=== PATIENT | male | born 1970 | race Caucasian/White ===

== ENCOUNTER → 2021-06-04 15:34 | Outpatient (BNVA) | payer OTHER, SELFPAY | PROVIDERS: PCP Internal Medicine; Visit Provider Surgery ==

== ENCOUNTER 2021-07-02 07:46 | Outpatient (REF) | payer OTHER, SELFPAY ==
[2021-07-02 07:48] VITALS: BP 126/74; PULSE 72; RESP 19; TEMP 36.7; O2SAT 97; BMI 28.5
--- NOTE | 2021-07-02 08:20 | W.PM.OPN ---
Operative Note Operative Note Date of Service: 07/02/21 Narrative: Preop diagnosis: Skin lesion, left cheek Postop diagnosis: Skin lesion left cheek Procedure: Excision of a skin lesion, left cheek under local anesthesia Surgeon: Khang Vides MD The patient is a 50-year-old male referred to me because of a skin lesion of the left cheek, measuring about 4 mm in widest diameter. It was elevated and appeared to be papillomatous He understood the technique of excision under local anesthesia. He was aware of the risks, benefits, and alternatives Was brought to the minor procedure room. He was placed supine. The area of the lesion was prepped and draped lidocaine 1% was used for local anesthesia. An elliptical incision was made in the skin around this lesion using blade 15. This was carried down through the full-thickness of skin and subcutaneous fat to excise the entire lesion. This was sent as specimen. I closed the incision with full-thickness nylon 5 0 interrupted sutures. Dressings were applied He tolerated procedure well. There were no complication noted. Blood loss about 1 cc. He was given wound care instructions.
== END 2021-07-02 07:47 | disposition home or self-care (01) ==
LOC: HO.MS 07:46
PROVIDERS: Visit Provider Surgery
PROC: (CPT 11440; principal; 2021-07-02 08:00)
DX: L98.8 Other specified disorders of the skin and subcutaneous tissue (principal); L85.9 Epidermal thickening, unspecified
CPT/HCPCS: 11440; 88305

== ENCOUNTER → 2021-07-10 09:31 | Outpatient (BNVA) | payer OTHER, SELFPAY | PROVIDERS: Visit Provider Surgery ==

== ENCOUNTER 2023-04-25 08:37 | Emergency (ER) | payer OTHER, SELFPAY ==
[2023-04-25 08:55] VITALS: BP 112/81; PULSE 67; RESP 18; TEMP 36.6; O2SAT 96; BMI 27.1
[2023-04-25 09:56] VITALS: BP 116/84; PULSE 67; RESP 17; O2SAT 97
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
[2023-04-25 11:45] VITALS: BP 123/77; PULSE 55; RESP 17; O2SAT 97
== END 2023-04-25 12:13 | disposition home or self-care (01) ==
PROVIDERS: Emergency Provider Emergency Medicine; PCP Family Medicine
DX: M54.50 Low back pain, unspecified (principal); M53.3 Sacrococcygeal disorders, not elsewhere classified; F17.210 Nicotine dependence, cigarettes, uncomplicated; Z71.6 Tobacco abuse counseling; Z79.899 Other long term (current) drug therapy
CPT/HCPCS: 72100; 72220; 96372; 99284; J1885

== ENCOUNTER 2023-04-28 10:17 | Outpatient (AMB) | payer OTHER, SELFPAY ==
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
[2023-04-28 10:27] VITALS: BP 124/70; PULSE 75; RESP 13; TEMP 36.4; O2SAT 99; BMI 29.6
== END 2023-04-28 10:58 | disposition home or self-care (01) ==
PROVIDERS: PCP Family Medicine; Visit Provider Nurse Practitioner Family
DX: M54.9 Dorsalgia, unspecified (principal)
CPT/HCPCS: 99213

== ENCOUNTER 2023-07-23 13:22 | Outpatient (AMB) | payer OTHER, SELFPAY ==
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
[2023-07-23 13:25] VITALS: BP 116/62; PULSE 78; RESP 16; O2SAT 95; BMI 29.6
== END 2023-07-23 14:03 | disposition home or self-care (01) ==
PROVIDERS: PCP Family Medicine; Visit Provider Family Medicine
DX: M54.9 Dorsalgia, unspecified (principal); B07.9 Viral wart, unspecified
CPT/HCPCS: 99213

== ENCOUNTER 2024-01-21 13:10 | Outpatient (AMB) | payer OTHER, SELFPAY ==
[2024-01-21 13:19] VITALS: BP 124/78; PULSE 72; O2SAT 96; BMI 31.2
--- NOTE | 2024-01-21 13:19 | A.OFFPC_ITS ---
Vital Signs 01/21/24 13:19 Height 6 ft Weight 230 lb BMI 31.2 BP 124/78 Blood Pressure Location Lt brachial Position Sitting Pulse 72 Pulse Source Pulse Oximeter Pulse Oximetry (%) 96 Oxygen Delivery Method Room Air Intake Visit Reasons: Anxiety/depression Intake Note: Patient is here to follow up on anxiety and depression, is having bilateral knee pain, and left lower back pain. Allergies No Known Allergies [No Known Allergies*] Allergy (Verified 01/21/24 13:22) Medication List - Last Reconciled 01/21/24 by Pj Murray MD citalopram 10 mg (1/2 x 20 mg) PO DAILY 30 days cyclobenzaprine 10 mg PO TID PRN hydroxyzine HCl 50 mg PO DAILY PRN 30 days ibuprofen 800 mg PO Q8H PRN Tobacco use date assessed: 01/21/24 Dental Screening Dental Screen Date: 01/21/24 Did you have a dental visit in the last 12 months?: Yes Did you have a dental problem in the last 6 months where you did not have access to dental care?: No Was dental information given to patient?: Patient has dentist HPI Anxiety/depression HPI Details Patient?presents?to?follow-up?anxiety Also?has?complaints?of?recent?back?strain?and?knee?pain Patient?says?his?anxiety?is?well?controlled?except?on?Sundays?and?Mondays?when?h e?has?to?go?back?to?work. Recently?picked?something?up?while?bending?forward?and?strained?his?back. Ibuprofen?and?cyclobenzaprine?have?worked?in?the?past. Denies?weakness?in?legs.??Denies?any?bowel?or?bladder?dysfunction. Bilateral?knee?pain?and?he?was?told?10?years?ago?that?he?already?needed?knee?rep lacements. 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 1. Little interest or pleasure in doing things: not at all 2. Feeling down, depressed, or hopeless: not at all 3. Trouble falling or staying asleep, or sleeping too much: not at all 4. Feeling tired or having little energy: several days 5. Poor appetite or overeating: not at all 6. Feeling bad about yourself - or that you are a failure or have let yourself or your family down: not at all 7. Trouble concentrating on things, such as reading the newspaper or watching television: not at all 8. Moving or speaking so slowly that other people could have noticed. Or the opposite - being so fidgety or restless that you have been moving around a lot more than usual: not at all 9. Thoughts that you would be better off or of hurting yourself in some way: not at all Total score: 1 Depression Screening Interpretation: Negative Depression Screening Done: Yes 53768 - PHQ-9 Billing: Yes Source: Developed by Drs. Reese Contreras, Fabiana Stanley, Tom Jansen and colleagues, with an educational marivel from [employer]. Thrive Questionnaire Date Thrive assessed: 04/28/23 MAGAN-7 AMB Questionnaire MAGAN-7 Date MAGAN - 7 assessed: 01/21/24 Feeling nervous, anxious, or on edge: 0 = Not at all Not being able to stop or control worryin = Not at all Worrying too much about different things: 1 = Several days Trouble relaxin = Not at all Being so restless that it is hard to sit still: 0 = Not at all Becoming easily annoyed or irritable: 1 = Several days Feeling afraid as if something awful might happen: 0 = Not at all Total MAGAN-7 score (0-4 normal; 5-9 mild; 10-14 moderate; 15-21 severe): 2 Source: Developed by Drs. Reese Contreras, Fabiana Stanley, Tom Jansen and colleagues, with an educational marivel from [employer]. MAGAN-7 Assessment Billing MAGAN-7 Assessment Tool: MAGAN-7 Assessment 53317 Review of Systems Const Denies chills, Denies fatigue, Denies fever(s), Denies headache(s) and Denies weakness ENT Denies dizziness and Denies headache(s) Card Denies chest pain, Denies lightheadedness, Denies dyspnea and Denies other (Palpitations) Resp Denies cough, Denies dyspnea, Denies wheezing and Denies other ( shortness of breath) Musc Details: Back?pain?and?knee?pain-see?HPI Denies numbness and Denies tingling Neuro Denies dizziness, Denies headache(s), Denies numbness, Denies tingling, Denies paresthesias and Denies weakness Psych Details: See?HPI Reports anxiety and Denies depression Endo Denies fatigue Aller/Immun Denies wheezing Physical exam (Primary Care) Vital Signs: Last Vital Signs Pulse 72 01/21/24 13:19 BP 124/78 01/21/24 13:19 Pulse Ox 96 01/21/24 13:19 Oxygen Delivery Method Room Air 01/21/24 13:19 BMI result Body Mass Index 31.2 Tobacco/Smoking Status: Tobacco use Status Tobacco use date assessed 01/21/24 01/21/24 13:27 Patient Tobacco Use Status Former Tobacco user 01/21/24 13:27 e-Cigarette/Vaping Use Never Used 01/21/24 13:27 PHQ-9: PHQ-9 Score PHQ-9: Total score 1 01/21/24 13:27 Depression Screening Interpretation: Negative Thrive Assessment: Date of Thrive Assessment Date Thrive assessed 04/28/23 01/21/24 13:27 Const General: no acute distress and well developed Nutritional Appearance: well nourished Orientation/consciousness: patient oriented x3 HENMT Head: Yes normocephalic and Yes atraumatic Eyes General: appearance normal, both eyes and all related structures Pupils: Equal, round and reactive pupils present EOM: EOMs intact bilaterally Resp Effort & Inspection: normal respiratory effort Auscultation: clear to auscultation bilaterally Cardio Rate: regular rate Rhythm: regular rhythm Heart sounds: S1 normal heart sound present, S2 normal heart sound present, no gallops, no murmurs and no rubs Back/Spine/Pelvis Other: Pain?with?low?back?ROM Straight?leg?raise?negative Neuro General: patient oriented x3 and gait normal Cranial nerves: Yes Equal, round and reactive pupils present Extrem Other: Bilateral?knee?pain?with?mild?joint?space?tenderness Psych Affect: normal affect Assessment and Plan Assessment & Plan (1) Anxiety: Code(s): F41.9 - Anxiety disorder, unspecified Plan: Controlled?with?citalopram?and?hydroxyzine. He?has?a?therapist He?notes?that?most?of?his?anxiety?is?on?Wednesday?night/Wednesday?morning?as?he?gets?a nxiety?about?going?back?to?work. We?discussed?talking?to?his?therapist?about?this?and?coming?up?with?coping?strat egies. Continue?current?medication (2) Low back strain: Code(s): S39.012A - Strain of muscle, fascia and tendon of lower back, initial encounter Plan: Patient?strained?his?back Encouraged?better?body?mechanics Ibuprofen?and?cyclobenzaprine Physical?therapy (3) Bilateral knee pain: Code(s): M25.561 - Pain in right knee; M25.562 - Pain in left knee Plan: Patient?notes?longstanding?bilateral?knee?pain?and?says?he?has?seen?a?specialist ?in?the?past?who?told?him?he?needed?knee?replacements.?? Start?physical?therapy?and?Check?x-rays Referred?to?Ortho Ibuprofen Orders: Orders PT Evaluation and Treatment Today S39.012A - Strain of muscle, fascia and tendon of lower back, initial encounter XR knee RT 3V Today M25.561 - Pain in right knee, M25.562 - Pain in left knee XR knee LT 3V Today M25.561 - Pain in right knee, M25.562 - Pain in left knee Referrals Orthopedics Referral M25.561 - Pain in right knee, M25.562 - Pain in left knee Medications: Refilled cyclobenzaprine 10 mg PO TID PRN 60 tabs 0RF muscle spasm M25.561 - Pain in right knee, M25.562 - Pain in left knee ibuprofen 800 mg PO Q8H PRN 60 tabs 1RF pain M25.561 - Pain in right knee, M25.562 - Pain in left knee Coding Level of Care Code Est Pt Level 4 (77423) Diagnoses Anxiety F41.9 Low back strain S39.012A Bilateral knee pain M25.561; M25.562 Additional Codes MAGAN-7 Assessment Billing - MAGAN-7 Assessment Tool: MAGAN-7 Assessment 33842 ([id number])
== END 2024-01-21 13:52 | disposition home or self-care (01) ==
PROVIDERS: PCP Nurse Practitioner Family; Visit Provider Family Medicine
DX: S39.012A Strain of muscle, fascia and tendon of lower back, initial encounter (principal); F41.9 Anxiety disorder, unspecified; M25.561 Pain in right knee; M25.562 Pain in left knee
CPT/HCPCS: 99214

== ENCOUNTER 2024-02-18 09:46 | Outpatient (REF) | payer OTHER, SELFPAY ==
--- NOTE | ~2024-02-18 | XR_ITS ---
EXAMINATION: XR knee RT 3V, XR knee LT 3V CLINICAL INFORMATION: Reason for Exam M25.569 - Pain in unspecified knee COMPARISON: None. TECHNIQUE: AP, lateral, and oblique views of the bilateral knees FINDINGS: * No acute fracture or dislocation. * Moderate degenerative changes of the bilateral knees with joint space narrowing and patellofemoral osteophytosis. * No soft tissue abnormality. XR/XR knee RT 3V IMPRESSION: Moderate degenerative changes of the bilateral knees.
--- NOTE | ~2024-02-18 | XR_ITS ---
EXAMINATION: XR knee RT 3V, XR knee LT 3V CLINICAL INFORMATION: Reason for Exam M25.569 - Pain in unspecified knee COMPARISON: None. TECHNIQUE: AP, lateral, and oblique views of the bilateral knees FINDINGS: * No acute fracture or dislocation. * Moderate degenerative changes of the bilateral knees with joint space narrowing and patellofemoral osteophytosis. * No soft tissue abnormality. XR/XR knee LT 3V IMPRESSION: Moderate degenerative changes of the bilateral knees.
== END 2024-02-18 09:47 | disposition home or self-care (01) ==
LOC: HO.HOSX 09:46
PROVIDERS: PCP Nurse Practitioner Family; Visit Provider Orthopaedic Surgery
DX: M23.8X2 Other internal derangements of left knee (principal); M23.8X1 Other internal derangements of right knee
CPT/HCPCS: 73562

== ENCOUNTER 2024-02-18 09:46 | Outpatient (AMB) | payer OTHER, SELFPAY ==
--- NOTE | 2024-02-18 09:49 | A.OFFVIS_ITS ---
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 Patient reports that he has had bilateral knee pain ongoing for many years and was told in the past that he would need both knees replaced. 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 His symptoms are not severe however they are constant. 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 Resp Other: No audible wheezing Effort & Inspection: normal respiratory effort Back/Spine/Pelvis Cervical Spine: normal cervical lordosis Skin General skin exam: no rashes or lesions noted Neuro General: no focal motor deficits Extrem Other: full rom no effusion mild anterior and retropatellar ttp Psych Appearance: grossly normal and well kempt Mental Status: mental status grossly normal Speech and movement: Normal speech and movement present Affect: normal affect Attitude: cooperative Results Reviewed Results Reviewed: PF OA bilaterally Assessment & Plan Assessment & Plan (1) Osteoarthritis of patellofemoral joints of both knees: Code(s): M17.0 - Bilateral primary osteoarthritis of knee Category: Medical Plan: Discssed findings No acute intervention warranted If pain worsens can consider NSAIDs, injections. Orders: Orders XR knee standing BI Today M25.569 - Pain in unspecified knee Coding Level of Care Code New Pt Level 3 (79955) Diagnoses Osteoarthritis of patellofemoral joints of both knees M17.0
== END 2024-02-18 11:19 | disposition home or self-care (01) ==
PROVIDERS: PCP Nurse Practitioner Family; Visit Provider Orthopaedic Surgery
DX: M17.0 Bilateral primary osteoarthritis of knee (principal)
CPT/HCPCS: 99203

== ENCOUNTER 2024-05-05 13:21 | Outpatient (AMB) | payer OTHER, SELFPAY ==
--- NOTE | 2024-05-05 14:12 | A.OFFPC_ITS ---
Vital Signs 05/05/24 14:13 Height 6 ft Weight 215 lb 2 oz BMI 29.2 BP 110/80 Blood Pressure Location Rt brachial Position Sitting Respiration 15 Pulse 82 Pulse Source Pulse Oximeter Temp 97.4 F Temp Source Temporal Artery Scan Pulse Oximetry (%) 95 Oxygen Delivery Method Room Air Intake Visit Reasons: CPE labs Intake Note: Patient states that he has a growth on left eye in the corner that he would like looked at and removed. 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 Required: No Accompanied by: Self / Same As Patient Allergies No Known Allergies [No Known Allergies*] Allergy (Verified 05/05/24 14:18) Medication List - Last Reconciled 05/05/24 by Pj Murray MD citalopram 10 mg (1/2 x 20 mg) PO DAILY 30 days Tobacco use date assessed: 05/05/24 Dental Screening Dental Screen Date: 05/05/24 Did you have a dental visit in the last 12 months?: Yes Did you have a dental problem in the last 6 months where you did not have access to dental care?: No Was dental information given to patient?: Patient has dentist HPI CPE labs HPI Details 53 y/o male presents for a CPE with f/u labs and health maintenance. No recent labs to review. He reports hip pain/tendonitis. 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 1. Little interest or pleasure in doing things: not at all 2. Feeling down, depressed, or hopeless: not at all 3. Trouble falling or staying asleep, or sleeping too much: not at all 4. Feeling tired or having little energy: not at all 5. Poor appetite or overeating: not at all 6. Feeling bad about yourself - or that you are a failure or have let yourself or your family down: not at all 7. Trouble concentrating on things, such as reading the newspaper or watching television: not at all 8. Moving or speaking so slowly that other people could have noticed. Or the opposite - being so fidgety or restless that you have been moving around a lot more than usual: not at all 9. Thoughts that you would be better off or of hurting yourself in some way: not at all Total score: 0 Depression Screening Interpretation: Negative Depression Screening Done: Yes 51233 - PHQ-9 Billing: Yes Source: Developed by Drs. Reese Contreras, Fabiana Stanley, Tom Jansen and colleagues, with an educational marivel from [employer]. Thrive Questionnaire Date Thrive assessed: 05/05/24 I am a: Patient What is your living situation today?: I have a steady place to live Within the past 12 months, did the food you bought not last and you didn't have the money to get more?: Never true Within the past 12 months, did you worry whether your food would run out before you got money to buy more?: Never true Do you have trouble paying for medicines?: No Do you have trouble getting transportation to medical appointments?: No Do you have trouble paying your heating and electricity bill?: No Do you have trouble taking care of your child, family member or friend?: No Do you have trouble with day-to-day activities such as bathing, preparing meals, shopping, managing finances, etc.?: No Are you currently unemployed and looking for a job?: No Are you interested in more education?: No Please select the resources that you would like help with: None Currently or been in a relationship where the following occur: No concerns reported THRIVE Score: 0 AUDIT C Alcohol Use Questionnaire (AUDIT-C) 1. How often do you have a drink containing alcohol?: Never 3. How often do you have six or more drinks on one occasion?: Never Total Score: 0 MAGAN-7 AMB Questionnaire MAGAN-7 Date AMGAN - 7 assessed: 05/05/24 Feeling nervous, anxious, or on edge: 2 = More than half the days Not being able to stop or control worryin = Not at all Worrying too much about different things: 0 = Not at all Trouble relaxin = Not at all Being so restless that it is hard to sit still: 0 = Not at all Becoming easily annoyed or irritable: 2 = More than half the days Feeling afraid as if something awful might happen: 0 = Not at all Total MAGAN-7 score (0-4 normal; 5-9 mild; 10-14 moderate; 15-21 severe): 4 Source: Developed by Drs. Reese Contreras, Fabiana Stanley, Tom Jansen and colleagues, with an educational marivel from [employer]. MAGAN-7 Assessment Billing MAGAN-7 Assessment Tool: MAGAN-7 Assessment 95486 Review of Systems Const Denies chills, Denies fatigue, Denies fever(s), Denies headache(s) and Denies weakness Eyes Denies change in vision ENT Denies dizziness, Denies headache(s), Denies hearing loss, Denies nasal congestion, Denies sinus pain, Denies sinus pressure and Denies sore throat Card Denies chest pain, Denies lightheadedness, Denies dyspnea and Denies other (palpitations) Resp Denies cough, Denies dyspnea and Denies wheezing GI Denies abdominal pain, Denies melena, Denies hematochezia, Denies change in bowel habits, Denies dyspepsia and Denies nausea Denies hematuria and Denies dysuria Musc Details: Hip pain Knee pain Denies abnormal gait, Denies myalgias, Denies arthralgias, Denies numbness and Denies tingling Skin/Breast Denies rash, Denies unusual bruising and Denies wounds Neuro Denies abnormal gait, Denies dizziness, Denies headache(s), Denies memory loss, Denies numbness, Denies Sensory deficit (Neuro), Denies tingling and Denies weakness Psych Denies anxiety, Denies depression and Denies memory loss Endo Denies cold intolerance, Denies fatigue, Denies heat intolerance, Denies polydipsia and Denies polyuria Wesley/Lymph Denies easy bleeding and Denies easy bruising Aller/Immun Denies wheezing Physical exam (Primary Care) Vital Signs: Last Vital Signs Temp 97.4 F 05/05/24 14:13 Pulse 82 05/05/24 14:13 Resp 15 05/05/24 14:13 BP 110/80 05/05/24 14:13 Pulse Ox 95 05/05/24 14:13 Oxygen Delivery Method Room Air 05/05/24 14:13 BMI result Body Mass Index 29.2 Tobacco/Smoking Status: Tobacco use Status Tobacco use date assessed 05/05/24 05/05/24 14:23 Patient Tobacco Use Status Current everyday Tobacco 05/05/24 14:23 e-Cigarette/Vaping Use Never Used 05/05/24 14:12 PHQ-9: PHQ-9 Score PHQ-9: Total score 0 05/05/24 14:23 Depression Screening Interpretation: Negative Thrive Assessment: Date of Thrive Assessment Date Thrive assessed 05/05/24 05/05/24 14:23 Currently or been in a relationship where the following occur: No concerns reported Const General: no acute distress, well developed, alert and awake Nutritional Appearance: well nourished Orientation/consciousness: patient oriented x3 HENMT Head: Yes normocephalic and Yes atraumatic Ears: hearing grossly normal bilaterally and TM's normal bilaterally General nose exam: Normal external nose present and Normal nares present Mouth: Normal oral and palatal mucosa present and moist mucous membranes Teeth and gingiva: dentition normal Throat: Yes posterior oropharynx normal Eyes General: appearance normal, both eyes and all related structures Pupils: Equal, round and reactive pupils present and Pupil accommodation reflex normal EOM: EOMs intact bilaterally Neck Neck: Yes normal visual inspection, Yes no lymphadenopathy and Yes trachea midline Thyroid: Thyroid normal Carotids: no bruits Lymphatic: no lymphadenopathy noted Chest Chest palpation & inspection: normal inspection of the chest Resp Effort & Inspection: normal respiratory effort Auscultation: clear to auscultation bilaterally Cardio Rate: regular rate Rhythm: regular rhythm Heart sounds: S1 normal heart sound present, S2 normal heart sound present, no gallops, no murmurs and no rubs Bruits: no abdominal aortic bruits and no carotid bruits GI Palpation (GI): No Abdominal aortic bruit present, Soft to palpation, nontender, No hepatosplenomegaly present and No Rebound tenderness present Auscultation: normal bowel sounds General: Yes no CVA tenderness Back/Spine/Pelvis Back: no CVA tenderness Cervical Spine: cervical ROM normal and No Cervical spine tenderness Thoracic/Lumbar Spine: thoraco-lumbar ROM normal, No pain with thoraco-lumbar ROM, No thoracic spinal tenderness and No lumbar spinal tenderness Skin Lesions: no lesions Rashes: no rashes Trauma: no lacerations or abrasions Wounds: no wounds Nails: normal Neuro General: patient oriented x3 Cranial nerves: Yes Equal, round and reactive pupils present Cognition (Neuro): normal cognition Gait exam (Neuro): Normal gait present Motor exam (neuro): 5/5 motor strength present throughout Sensory Exam: No Sensory deficit (Neuro) Deep tendon reflexes (DTR's): Right patellar reflex intensity grade: 2+ and Left patellar reflex intensity grade: 2+ Extrem General: Yes normal to inspection and No edema Psych Appearance: grossly normal Affect: normal affect Attitude: cooperative Thought process: Normal thought process present Assessment and Plan Assessment & Plan (1) Adult general medical exam: Code(s): Z00.00 - Encounter for general adult medical examination without abnormal findings Plan: 53-year-old?male?presents?for?complete?physical?exam Encouraged?healthy?diet?with?active?lifestyle?and?plenty?of?exercise (2) Hip pain: Code(s): M25.559 - Pain in unspecified hip Plan: Left?lateral?hip?pain Trial?meloxicam Ice/heat Will?consider?physical?therapy?if?worsening (3) Anxiety: Code(s): F41.9 - Anxiety disorder, unspecified Plan: Ongoing?anxiety?which?is?worst?in?the?morning. Patient?does?not?think?the?citalopram?is?helping?much?and?he?is?even?tried?takin g?this?twice?a?day. Will?give?him?a?script?for?venlafaxine Wi ll?also?give?him?a?script?for?clonidine?and?he?can?take?1/2?tablet?when?anxiety? is?severe. (4) Bilateral knee pain: Code(s): M25.561 - Pain in right knee; M25.562 - Pain in left knee Plan: X-ray?shows?moderate?degenerative?arthritis Trial?meloxicam Demonstrated?exercises Offered?PT?but?patient?declines?for?now Has?seen?ortho?and?he?declined?injection?therapy?but?may?reconsider?if?worsens (5) Screening for prostate cancer: Code(s): Z12.5 - Encounter for screening for malignant neoplasm of prostate Plan: Check?PSA (6) Sebaceous cyst: Code(s): L72.3 - Sebaceous cyst Plan: Cyst?at?corner?of?left?eye Referred?to?ophthalmology (7) Screening for colon cancer: Code(s): Z12.11 - Encounter for screening for malignant neoplasm of colon Plan: Patient?had?colonoscopy?at?age?48.??Advised?to?follow-up?at?age?58 Up-to-date? Orders: Referrals Audiology Referral H91.90 - Unspecified hearing loss, unspecified ear Ophthalmology Referral L72.3 - Sebaceous cyst Medications: New meloxicam 15 mg PO DAILY 30 days 30 tabs 2RF venlafaxine 75 mg PO DAILY 30 days 30 tabs 2RF clonidine HCl 0.1 mg PO DAILY 30 days PRN 30 tabs 1RF anxiety Discontinued citalopram Discontinued Reason: Doctor's Order 10 mg (1/2 x 20 mg) PO DAILY 30 days 15 tabs 1RF Coding Level of Care Code Est Pt Level 3 (14083) Est Pt Prev Care 40-64y(19702) Diagnoses Adult general medical exam Z00.00 Hip pain M25.559 Anxiety F41.9 Bilateral knee pain M25.561; M25.562 Screening for prostate cancer Z12.5 Sebaceous cyst L72.3 Screening for colon cancer Z12.11 Additional Codes MAGAN-7 Assessment Billing - MAGAN-7 Assessment Tool: MAGAN-7 Assessment 16404 ([id number])
[2024-05-05 14:13] VITALS: BP 110/80; PULSE 82; RESP 15; TEMP 36.3; O2SAT 95; BMI 29.2
== END 2024-05-05 16:01 | disposition home or self-care (01) ==
PROVIDERS: PCP Nurse Practitioner Family; Visit Provider Family Medicine
DX: Z00.00 Encounter for general adult medical examination without abnormal findings (principal); M25.552 Pain in left hip; F41.9 Anxiety disorder, unspecified; M25.561 Pain in right knee; M25.562 Pain in left knee; Z12.5 Encounter for screening for malignant neoplasm of prostate; L72.3 Sebaceous cyst; Z12.11 Encounter for screening for malignant neoplasm of colon
CPT/HCPCS: 99213; 99396

== ENCOUNTER 2024-05-12 08:26 | Outpatient (REF) | payer OTHER, SELFPAY | END 2024-05-12 08:27 | disposition home or self-care (01) | LOC: HO.SH 08:26 | PROVIDERS: Visit Provider Family Medicine | DX: Z01.118 Encounter for examination of ears and hearing with other abnormal findings (principal); H90.3 Sensorineural hearing loss, bilateral | CPT/HCPCS: 92557 ==

== ENCOUNTER 2024-05-17 06:09 | Emergency (ER) | payer OTHER, SELFPAY ==
[2024-05-17 06:11] VITALS: BP 129/88; PULSE 76; RESP 16; TEMP 36.7; O2SAT 93; BMI 28.9
--- NOTE | 2024-05-17 06:35 | ED.GENADULT ---
HPI - General Adult General Chief complaint: General Medical Stated complaint: lyme disease ? Time Seen by Provider: 05/17/24 06:32 Source: patient Mode of arrival: ambulatory Limitations: no limitations History of Present Illness ED Provider: talib FOX narrative: Patient is a 53-year-old male presenting to the ED with complaint of one week of generalized body aches. Began as bilateral knee pain, then developed intermittent back and neck pain. Reports felt sweats several nights but did not check temp with thermometer. States he hikes with his dog daily. Has not noted any tick bites or rashes over the past 4-6 weeks. Neighbor recently tested positive for Lyme so he is requesting testing for this. Has tested several times for Covid, all of which have been negative. MD complaint: body aches Onset (ago): week(s) Quality: aching Pain Consistency: intermittent Associated symptoms: fever/chills Treatments prior to arrival: none Related Data Previous Rx's ?Medication ?Instructions ?Recorded clonidine HCl 0.1 mg tablet 0.1 mg PO DAILY PRN anxiety 30 05/05/24 days #30 tabs meloxicam 15 mg tablet 15 mg PO DAILY 30 days #30 tabs 05/05/24 venlafaxine 75 mg tablet 75 mg PO DAILY 30 days #30 tabs 05/05/24 Allergies Allergy/AdvReac Type Severity Reaction Status Date / Time No Known Allergies Allergy Verified 05/17/24 06:17 [No Known Allergies*] Review of Systems Review of Systems: As per HPI Yes all other systems are reviewed and are negative Constitutional: Constitutional: Reports as per HPI PMF Past Medical History Medical History No pertinent family history Surgical History History of surgical removal of lesion History of surgery on wrist Social History Social History Housing: House Alcohol intake: never Patient Tobacco Use Status: Current everyday Tobacco user Cigarette Packs Per Day: 0.25 Cigarettes Per Day: 5 Years Smoked: 20 Smoked in Last 30 Days: No e-Cigarette/Vaping Use: Never Used Second Hand Smoke Exposure: No Use of substances other than those prescribed or required for medical reasons: No Substance Use Type: Marijuana Advance Directives: No Advance Directives Information Provided: Yes service: No Current occupational status: employed 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 Blood pressure normal. Heart rate normal. Respiratory rate normal. Temperature normal. Oxygen saturation normal. Const General: cooperative, healthy appearing and no acute distress Orientation/consciousness: oriented to person, oriented to place, oriented to time and patient oriented x3 Limitations: no limitations HENMT Head: Yes normocephalic and Yes atraumatic Ears: external ears normal General nose exam: Normal external nose present Face and sinus: Yes face symmetric Mouth: oropharynx normal and moist mucous membranes Throat: Yes uvula midline Eyes Pupils: Equal, round and reactive pupils present Neck Neck: Yes normal visual inspection and Yes supple Resp Effort & Inspection: normal respiratory effort and able to speak in complete sentences Auscultation: clear to auscultation bilaterally Cardio Rate: regular rate Rhythm: regular rhythm Heart sounds: S1 normal heart sound present and S2 normal heart sound present GI Palpation (GI): Soft to palpation and nontender Auscultation: normoactive bowel sounds General: Yes no CVA tenderness Back/Spine/Pelvis Back: no CVA tenderness Skin General skin exam: no rashes or lesions noted, elasticity normal and turgor normal Neuro General: oriented to person, oriented to place, oriented to time, patient oriented x3, moves all extremities, no focal motor deficits and CN's II-XI intact bilaterally Cranial nerves: Yes Equal, round and reactive pupils present Cognition (Neuro): normal cognition Extrem General: Yes full ROM, Yes no pedal edema and Yes no calf tenderness Psych Mental Status: mental status grossly normal Affect: normal affect Thought process: Normal thought process present Medical Decision Making Medical Decision Making MDM Narrative: Patient is a 53-year-old male presenting to the ED with complaint of one week of generalized body aches. On exam patient is awake, A+Ox3, VS WNL, afebrile, normal neurological exam without focal deficits, physical exam findings as above. Given reported symptoms and physical exam findings, initial differential includes viral illness, tick borne illness. Labs unremarkable, no eosinophilia, normal transaminases. Denying, patient will be contacted with any positive results. Deferred viral testing at this time as patient has been symptomatic for a week. Advised him to follow-up with PCP. Discussed that if any of the tick panel is positive, this will require treatment and he will be contacted and prescriptions will be sent to his pharmacy. Return precautions discussed at bedside. Patient verbalized understanding of and agreement with plan. Differential Diagnosis Differential Diagnoses: The differential diagnosis associated with the presentation includes As per MDM. Lab Data [facility] Lab Attestation statement: I reviewed the patient's lab results. As per [facility]. 05/17/24 06:47 05/17/24 06:47 Labs: Lab Results 05/17/24 Range/Units 06:47 WBC 7.5 (4.8-10.8) X10*3/uL RBC 4.67 (4.60-5.80) X10*6/uL Hgb 14.5 (14.0-18.0) g/dl Hct 41.6 L (42.0-52.0) % MCV 89.1 (80.0-98.0) fL MCH 31.0 (27.0-33.0) pg MCHC 34.9 (31.0-36.0) g/dl RDW 13.0 (11.0-16.0) % Plt Count 242 (160-400) X10*3/uL MPV 9.0 L (9.4-12.4) fL Immature Gran % (Auto) 0.1 (0.0-0.4) % Neut % (Auto) 51.2 (45-73) % Lymph % (Auto) 34.0 (20-40) % [place] % (Auto) 10.8 (2-11) % Eos % (Auto) 3.2 (0-4) % Baso % (Auto) 0.7 (0-2) % Lymph # (Auto) 2.6 (1.2-4.9) X10*3/uL [place] # (Auto) 0.8 (0.1-1.2) X10*3/uL Eos # (Auto) 0.2 (0.0-0.4) X10*3/uL Baso # (Auto) 0.1 (0.0-0.2) X10*3/uL Abs Immat Gran (auto) 0.01 (0.00-0.03) X10*3/uL Absolute Neuts (auto) 3.9 (2.0-8.3) x10*3/uL Absolute Nucleated RBC 0.000 (0.0-0.012) X10*3/uL Nucleated RBC % (auto) 0.0 (0.0-0.2) /100WBC Sodium 138 (135-145) mmol/L Potassium 4.2 (3.3-5.1) mmol/L Chloride 105 (96-108) mmol/L Carbon Dioxide 25 (22-29) mmol/L Anion Gap 12 (12-20) BUN 20 H (9-16) mg/dL Creatinine 0.96 (0.5-1.4) mg/dL Estim Creat Clear Calc 104.7 Estimated GFR > 60 Random Glucose 109 (60-115) mg/dL Calcium 9.6 (8.4-10.2) mg/dL Total Bilirubin 0.4 (0.0-1.0) mg/dL AST 14 (5-37) U/L ALT 15 (0-40) U/L Alkaline Phosphatase 46 (39-117) U/L Total Protein 6.5 (6.5-8.0) g/dL Albumin 3.9 (3.5-5.0) g/dL External Record Review External record reviewed: Inpatient record, Office record and Outpatient record Discharge Plan Discharge Clinical Impression: Generalized body aches Patient Disposition: Home, Self-Care Instructions: Viral Syndrome (ED) Additional Instructions: You were evaluated in the emergency department today for one week of body aches. Your labs were reassuring but you were also tested for tick borne illnesses. The tick panel will take several days to result. You will be contacted with any positive results. Follow up with your primary care provider this week. Return to the ED with fever, difficulty breathing, chest pain, or any other concerning symptoms. Prescriptions: No Action meloxicam 15 mg tablet 15 mg PO DAILY 30 Days Qty: 30 2RF venlafaxine 75 mg tablet 75 mg PO DAILY 30 Days Qty: 30 2RF clonidine HCl 0.1 mg tablet 0.1 mg PO DAILY PRN (Reason: anxiety) 30 Days Qty: 30 1RF Print Language: Chilean
[2024-05-17 06:51] LABS: MANUAL DIFF FLAG NO
[2024-05-17 06:52] LABS: Basophils Absolute Auto 0.1 X10*3/uL (0.0-0.2); Basophils Percent Auto 0.7 % (0-2); Eosinophils Absolute Auto 0.2 X10*3/uL (0.0-0.4); Eosinophils Percent Auto 3.2 % (0-4); Hematocrit 41.6 % (42.0-52.0); Hemoglobin 14.5 g/dl (14.0-18.0); Imm Gran Abs Auto 0.01 X10*3/uL (0.00-0.03); Imm Gran Pct Auto 0.1 % (0.0-0.4); Lymphocytes Absolute Auto 2.6 X10*3/uL (1.2-4.9); Mean Corpuscular HGB Conc 34.9 g/dl (31.0-36.0); Mean Corpuscular Volume 89.1 fL (80.0-98.0); Monocytes Absolute Auto 0.8 X10*3/uL (0.1-1.2); Monocytes Percent Auto 10.8 % (2-11); Neutrophils Absolute Auto 3.9 x10*3/uL (2.0-8.3); Neutrophils Percent Auto 51.2 % (45-73); Platelet Count 242 X10*3/uL (160-400); Red Blood Count 4.67 X10*6/uL (4.60-5.80); White Blood Count 7.5 X10*3/uL (4.8-10.8)
[2024-05-17 07:12] LABS: Alanine Aminotransferase 15 U/L (0-40); Albumin Level 3.9 g/dL (3.5-5.0); Alkaline Phosphatase 46 U/L (39-117); Anion Gap 12 (12-20); Aspartate Amino Transferase 14 U/L (5-37); Bilirubin Total 0.4 mg/dL (0.0-1.0); Blood Urea Nitrogen 20 mg/dL (9-16); Calcium 9.6 mg/dL (8.4-10.2); Carbon Dioxide 25 mmol/L (22-29); Chloride 105 mmol/L (96-108); Creatinine Clr Calc Pharmacy 104.7; Estimated Glomerular Filt Rate > 60; Glucose Random 109 mg/dL (60-115); Potassium 4.2 mmol/L (3.3-5.1); Sodium 138 mmol/L (135-145); Total Protein 6.5 g/dL (6.5-8.0)
[2024-05-17 07:37] VITALS: BP 129/88; PULSE 76; RESP 16; TEMP 36.7; O2SAT 93
[2024-05-18 18:28] LABS: A. Phagocytphilium DNA,RT-PCR NOT DETECTED (NOT DETECTED); Babesia Microti DNA, RT-PCR NOT DETECTED (NOT DETECTED); Borrelia Miyamotoi,DNA RT-PCR NOT DETECTED (NOT DETECTED); E.Chaffeensis DNA RT-PCR NOT DETECTED (NOT DETECTED); Lyme(Borrelia ssp)DNA RT-PCR NOT DETECTED (NOT DETECTED)
== END 2024-05-17 07:41 | disposition home or self-care (01) ==
PROVIDERS: Registered Nurse Emergency; Emergency Provider Emergency Medicine
DX: M79.10 Myalgia, unspecified site (principal); M54.2 Cervicalgia; R51.9 Headache, unspecified; F17.210 Nicotine dependence, cigarettes, uncomplicated; Z79.899 Other long term (current) drug therapy
CPT/HCPCS: 36415; 80053; 85025; 87468; 87469; 87478; 87484; 87798; 99283; 99284

== ENCOUNTER 2024-06-23 11:37 | Outpatient (AMB) | payer OTHER, SELFPAY ==
--- NOTE | 2024-06-23 12:26 | A.OFFPC_ITS ---
Vital Signs 06/23/24 12:35 Height 6 ft Weight 217 lb 8 oz BMI 29.5 BP 115/69 Blood Pressure Location Rt brachial Position Sitting Respiration 18 Pulse 77 Pulse Source Pulse Oximeter Temp 97.9 F Temp Source Temporal Artery Scan Pulse Oximetry (%) 98 Oxygen Delivery Method Room Air Intake Visit Reasons: CPE with labs Intake Note: LFTknee pain i explain to the patient he has a PT order in the system and should give that a try before an MRI can be order as well pt agreed to try out PT Allergies No Known Allergies [No Known Allergies*] Allergy (Verified 06/23/24 12:29) Medication List - Last Reconciled 06/23/24 by Pj uMrray MD clonidine HCl 0.1 mg PO DAILY PRN 30 days meloxicam 15 mg PO DAILY 30 days venlafaxine 75 mg PO DAILY 30 days Tobacco use date assessed: 06/23/24 Dental Screening Dental Screen Date: 05/05/24 Did you have a dental visit in the last 12 months?: Yes Did you have a dental problem in the last 6 months where you did not have access to dental care?: No Was dental information given to patient?: Patient has dentist HPI CPE with labs HPI Details 53 y/o male presents to f/u anxiety. Has complaints of ongoing bilateral knee pain. Recent workup did show osteoarthritis of bilateral knees. Reluctant to start physical therapy and feels his knee pain requires MRI. He notes venlafaxine does not seem to be doing much for his anxiety. HPI Comments History of Present Illness Details Documentation assistance for Pj Murray MD, was provided by Lei Yu, Refrigeration Unit Repairer on 06/23/2024 at 1:00 PM EST. I, Dr. Murray, have read, observed, and verified documentation. 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 1. Little interest or pleasure in doing things: not at all 2. Feeling down, depressed, or hopeless: not at all 3. Trouble falling or staying asleep, or sleeping too much: nearly every day 4. Feeling tired or having little energy: nearly every day 5. Poor appetite or overeating: not at all 6. Feeling bad about yourself - or that you are a failure or have let yourself or your family down: not at all 7. Trouble concentrating on things, such as reading the newspaper or watching television: not at all 8. Moving or speaking so slowly that other people could have noticed. Or the opposite - being so fidgety or restless that you have been moving around a lot more than usual: not at all 9. Thoughts that you would be better off or of hurting yourself in some way: not at all Total score: 6 Depression Screening Interpretation: Positive Depression Screening Done: Yes 93426 - PHQ-9 Billing: Yes Source: Developed by Drs. Reese Contreras, Fabiana Stanley, Tom Jansen and colleagues, with an educational marivel from [employer]. Thrive Questionnaire Date Thrive assessed: 06/23/24 I am a: Patient What is your living situation today?: I have a steady place to live Within the past 12 months, did the food you bought not last and you didn't have the money to get more?: Never true Within the past 12 months, did you worry whether your food would run out before you got money to buy more?: Never true Do you have trouble paying for medicines?: No Do you have trouble getting transportation to medical appointments?: No Do you have trouble paying your heating and electricity bill?: No Do you have trouble taking care of your child, family member or friend?: No Do you have trouble with day-to-day activities such as bathing, preparing meals, shopping, managing finances, etc.?: No Are you currently unemployed and looking for a job?: No Are you interested in more education?: No Please select the resources that you would like help with: None Currently or been in a relationship where the following occur: No concerns reported THRIVE Score: 0 AUDIT C Alcohol Use Questionnaire (AUDIT-C) 1. How often do you have a drink containing alcohol?: Never 3. How often do you have six or more drinks on one occasion?: Never Total Score: 0 MAGAN-7 AMB Questionnaire MAGAN-7 Date MAGAN - 7 assessed: 06/23/24 Feeling nervous, anxious, or on edge: 0 = Not at all Not being able to stop or control worryin = Not at all Worrying too much about different things: 0 = Not at all Trouble relaxin = Several days (DO TO KNEE DISCOMFORT) Being so restless that it is hard to sit still: 0 = Not at all Becoming easily annoyed or irritable: 0 = Not at all Feeling afraid as if something awful might happen: 0 = Not at all Total MAGAN-7 score (0-4 normal; 5-9 mild; 10-14 moderate; 15-21 severe): 1 Source: Developed by Drs. Reese Contreras, Fabiana Stanley, Tom Jansen and colleagues, with an educational marivel from [employer]. MAGAN-7 Assessment Billing MAGAN-7 Assessment Tool: MAGAN-7 Assessment 73870 Review of Systems Const Denies chills, Denies fatigue, Denies fever(s), Denies headache(s) and Denies weakness ENT Denies dizziness and Denies headache(s) Card Denies dyspnea Resp Denies cough, Denies dyspnea, Denies wheezing and Denies other (shortness of breath) Musc Details: Bilateral knee pain Denies numbness and Denies tingling Neuro Denies dizziness, Denies headache(s), Denies numbness, Denies tingling and Denies weakness Psych Denies anxiety and Denies depression Endo Denies fatigue Aller/Immun Denies wheezing Physical exam (Primary Care) Vital Signs: Last Vital Signs Temp 97.9 F 06/23/24 12:35 Pulse 77 06/23/24 12:35 Resp 18 06/23/24 12:35 BP 115/69 06/23/24 12:35 Pulse Ox 98 06/23/24 12:35 Oxygen Delivery Method Room Air 06/23/24 12:35 BMI result Body Mass Index 29.5 Tobacco/Smoking Status: Tobacco use Status Tobacco use date assessed 06/23/24 06/23/24 12:35 Patient Tobacco Use Status Current someday Tobacco 06/23/24 12:35 e-Cigarette/Vaping Use Never Used 06/23/24 12:31 PHQ-9: PHQ-9 Score PHQ-9: Total score 6 06/23/24 12:35 Depression Screening Interpretation: Positive Thrive Assessment: Date of Thrive Assessment Date Thrive assessed 06/23/24 06/23/24 12:35 Currently or been in a relationship where the following occur: No concerns reported Const General: well developed; No acute distress Nutritional Appearance: well nourished Orientation/consciousness: patient oriented x3 HENMT Head: Yes normocephalic and Yes atraumatic Eyes General: appearance normal, both eyes and all related structures Pupils: Equal, round and reactive pupils present EOM: EOMs intact bilaterally Resp Effort & Inspection: normal respiratory effort Auscultation: clear to auscultation bilaterally Cardio Rate: regular rate Rhythm: regular rhythm Heart sounds: S1 normal heart sound present, S2 normal heart sound present, no gallops, no murmurs and no rubs Neuro General: patient oriented x3 and gait normal Cranial nerves: Yes Equal, round and reactive pupils present Psych Affect: normal affect Assessment and Plan Assessment & Plan (1) Anxiety: Code(s): F41.9 - Anxiety disorder, unspecified Plan: Still?no?relief?with?venlafaxine?75?mg?daily Will?have?him?increase?this?to?twice?a?day Can?continue?clonidine?p.r.n. Follow-up?in?about?a?month (2) Bilateral knee pain: Code(s): M25.561 - Pain in right knee; M25.562 - Pain in left knee Plan: Ongoing?bilateral?knee?pain?which?has?been?worsening?over?the?past?8?weeks. X-rays?show?moderate?degenerative?changes. He?had?seen?ortho?and?was?offered?injection?therapy?but?he?declines?this?at?time He?had?also?been?offered?physical?therapy?but?declined?this.??He?has?augustus nged?his?mind?and?would?like?to?try?physical?therapy. Will?also?give?him?a?short?course?of?prednisone?and?he?can?also?start?some?napro xen.??He?says?he?tried?naproxen?at?home?and?this?had?improved?his? symptoms?significantly. Will?follow-up?in?about?a?month?to?discuss?next?steps Plan Patient?also?has?not?gotten?his?labs?drawn?yet?but?will?do?so?today. Orders: Orders LDL Cholesterol Direct Today Z00.00 - Encounter for general adult medical examination without abnormal findings PT Evaluation and Treatment Today M25.561 - Pain in right knee, M25.562 - Pain in left knee Medications: New naproxen 500 mg PO BID 30 days 60 tabs 1RF prednisone 40 mg (2 x 20 mg) PO DAILY 4 days 8 tabs 0RF Discontinued meloxicam Discontinued Reason: Doctor's Order 15 mg PO DAILY 30 days 30 tabs 2RF Coding Level of Care Code Est Pt Level 3 (86924) Diagnoses Anxiety F41.9 Bilateral knee pain M25.561; M25.562 Additional Codes MAGAN-7 Assessment Billing - MAGAN-7 Assessment Tool: MAGAN-7 Assessment 73903 ([id number])
[2024-06-23 12:35] VITALS: BP 115/69; PULSE 77; RESP 18; TEMP 36.6; O2SAT 98; BMI 29.5
== END 2024-06-23 13:02 | disposition home or self-care (01) ==
PROVIDERS: PCP Nurse Practitioner Family; Visit Provider Family Medicine
DX: F41.9 Anxiety disorder, unspecified (principal); M25.561 Pain in right knee; M25.562 Pain in left knee
CPT/HCPCS: 96127; 99213

== ENCOUNTER 2024-07-21 08:00 | Outpatient (RCR) | payer OTHER, SELFPAY ==
--- NOTE | 2024-07-11 08:40 | MHC.PT.EP ---
[facility] [place] Office [place] Office [place] Office [address] [phone] F: [phone] F: [phone] F: [phone] F: [phone] Physical Therapy Plan of Care Date of Evaluation: 07/11/24 Date of Surgery: n/a Diagnosis: pain in B knees Assessment: Patient is a 53 year old male presenting to PT with complaints of pain in his B knees. Pt reports onset of pain began years ago due to insidious onset. He presents today with impairments pain, hip strength, stability. 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 Clinical presentation today is most consistent with signs and sx associated with B knee pain and pt will benefit from skilled PT 2 week x 4 weeks to address the following problems and impairments noted upon evaluation: pain, hip strength, stability. These problems limit the patient with the following functional activities: ADLs, ambulating, stair negotiation. The prescribed treatment plan of care is medically necessary. Co-morbidities of none were identified and taken into considerations of plan of care. Pt was educated on HEP, role of PT, prognosis, POC. Frequency and Duration: The patient will be seen 2 x week x 4 weeks Short Term Goals: Pt will demonstrate improved hip MMT strength by 1/3 grade in 2 weeks. Pt will demonstrate less pain/achiness at rest in 2 weeks. Structural Draftsman Goals: Pt will demonstrate improved LEFI score by 9 points in 4 weeks for improved functional mobility. Pt will demonstrate ability to ambulate 4 miles with min to no pain in 4 weeks for improved ability to walk his dog. Treatment Plan: Modalities to reduce pain, spasms and effusion. Manual therapy to restore motion and function. Therapeutic exercise to improve strength and flexibility. Neuromuscular re-education for posture and balance. Therapeutic activities to return to functional activities of daily living. Electronically signed by: Sarah White, PT, DPT, ATC Please sign and return to therapist. Thank you for your referral.
--- NOTE | 2024-07-28 07:13 | MHC.PT.DC ---
[facility] [place] Office [place] Office [place] Office [address] [facility] [phone] F: [phone] F: [phone] F: [phone] F: [phone] Physical Therapy Discharge Report Diagnosis: pain in B knees Date of Surgery: n/a Date of Evaluation: 07/11/24 Date of Discharge: 07/28/24 Treatments to Date: 3 Cancellations to Date: No Shows to Date: Discharge Status: Discharge Summary: Pt arrived to his final appointment stating he doesn't think PT is helping him. He feels improvements that last only about an hour after the session. He is wondering what the next step is as he feels even though he is compliant with his program he does not feel this is the correct intervention due to lack of progress. I educated the pt that the next step is to follow up with a specialist to discuss other ways to manage his pain. He is in agreement and would like to be d/c and follow up with a specialist. Electronically signed by: Sarah White, PT, DPT, ATC Please sign and return to therapist. Thank you for your referral.
== END 2024-07-28 07:13 | disposition home or self-care (01) ==
LOC: HO.PTCHIC 08:00
PROVIDERS: PCP Family Medicine; Visit Provider Family Medicine
DX: M25.561 Pain in right knee (principal); M25.562 Pain in left knee
CPT/HCPCS: 97110; 97161

== ENCOUNTER 2024-10-06 13:13 | Outpatient (AMB) | payer OTHER, SELFPAY ==
--- NOTE | 2024-10-06 13:45 | MHC.PC.OV ---
Vital Signs 10/06/24 13:50 Height 6 ft Weight 218 lb BMI 29.6 BP 110/60 Blood Pressure Location Rt brachial Position Sitting Respiration 16 Pulse 75 Pulse Source Pulse Oximeter Temp 97.8 F Temp Source Oral Pulse Oximetry (%) 95 Oxygen Delivery Method Room Air Intake Visit Reasons: Anxiety follow-up Intake Note: Anxiety follow up Allergies No Known Allergies [No Known Allergies*] Allergy (Verified 10/06/24 13:46) Medication List - Last Reviewed 10/06/24 by Wilfredo Lopez CMA Tobacco use date assessed: 06/23/24 Dental Screening Dental Screen Date: 05/05/24 HPI Anxiety follow-up HPI Details 53 y/o male presents to f/u anxiety. Had went to the ED in April for generalized body aches. Labs were reassuring, was tested for tick borne illnesses. Reports ongoing arthralgias/bilateral knee pain. 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 1. Little interest or pleasure in doing things: not at all 2. Feeling down, depressed, or hopeless: not at all 3. Trouble falling or staying asleep, or sleeping too much: nearly every day 4. Feeling tired or having little energy: more than half the days 5. Poor appetite or overeating: not at all 6. Feeling bad about yourself - or that you are a failure or have let yourself or your family down: not at all 7. Trouble concentrating on things, such as reading the newspaper or watching television: not at all 8. Moving or speaking so slowly that other people could have noticed. Or the opposite - being so fidgety or restless that you have been moving around a lot more than usual: not at all 9. Thoughts that you would be better off or of hurting yourself in some way: not at all Total score: 5 Depression Screening Interpretation: Positive Depression Screening Done: Yes 68570 - PHQ-9 Billing: Yes Source: Developed by Drs. Reese Contreras, Fabiana Stanley, Tom Jansen and colleagues, with an educational marivel from [employer]. Thrive Questionnaire Date Thrive assessed: 10/06/24 I am a: Patient What is your living situation today?: I have a steady place to live Within the past 12 months, did the food you bought not last and you didn't have the money to get more?: Never true Within the past 12 months, did you worry whether your food would run out before you got money to buy more?: Never true Do you have trouble paying for medicines?: No Do you have trouble getting transportation to medical appointments?: No Do you have trouble paying your heating and electricity bill?: No Do you have trouble taking care of your child, family member or friend?: No Do you have trouble with day-to-day activities such as bathing, preparing meals, shopping, managing finances, etc.?: No Are you currently unemployed and looking for a job?: No Are you interested in more education?: Yes Please select the resources that you would like help with: None Currently or been in a relationship where the following occur: No concerns reported THRIVE Score: 0 AUDIT C Alcohol Use Questionnaire (AUDIT-C) 1. How often do you have a drink containing alcohol?: Never Total Score: 0 MAGAN-7 AMB Questionnaire MAGAN-7 Date MAGAN - 7 assessed: 10/06/24 Feeling nervous, anxious, or on edge: 2 = More than half the days Not being able to stop or control worryin = Not at all Worrying too much about different things: 2 = More than half the days Trouble relaxin = More than half the days Being so restless that it is hard to sit still: 0 = Not at all Becoming easily annoyed or irritable: 0 = Not at all Feeling afraid as if something awful might happen: 0 = Not at all Total MAGAN-7 score (0-4 normal; 5-9 mild; 10-14 moderate; 15-21 severe): 6 Source: Developed by Drs. Reese Contreras, Fabiana Stanley, Tom Jansen and colleagues, with an educational marivel from [employer]. Physical exam (Primary Care) Tobacco/Smoking Status: Tobacco use Status Tobacco use date assessed 06/23/24 10/06/24 13:47 Patient Tobacco Use Status Current someday Tobacco 10/06/24 13:47 e-Cigarette/Vaping Use Never Used 10/06/24 13:47 PHQ-9: PHQ-9 Score PHQ-9: Total score 5 10/06/24 13:47 Depression Screening Interpretation: Positive Thrive Assessment: Date of Thrive Assessment Date Thrive assessed 06/23/24 10/06/24 13:47 Currently or been in a relationship where the following occur: No concerns reported Coding Level of Care Code Est Pt Level 3 (59544) Diagnoses Anxiety F41.9 Arthralgia M25.50 Bilateral knee pain M25.561; M25.562 Additional Codes PHQ-9 - 17540 - PHQ-9 Billing: Yes ([id number]) Assessment & Plan Assessment & Plan (1) Anxiety: Code(s): F41.9 - Anxiety disorder, unspecified Category: Medical Plan: Ongoing?anxiety. Patient?discontinued?venlafaxine?as?he?did?not?think?it?was?helping.??He?did?not?have?any?adverse?reactions?to?it?either?however. No?longer?taking?clonidine?as?he?said?this?did?not?help?either Start?buspirone?5?mg?b.i.d. Will?follow-up?in?a?month (2) Arthralgia: Code(s): M25.50 - Pain in unspecified joint Category: Medical Plan: Ongoing?arthralgias?and?bilateral?knee?pain X-rays?only?showed?mild?degenerative?disease Will?check?inflammatory?markers Will?refer?to?ortho-see?below (3) Bilateral knee pain: Code(s): M25.561 - Pain in right knee; M25.562 - Pain in left knee Category: Medical Plan: Ongoing?bilateral?knee?pain.??More?recently?right?knee?worse?than?left X-rays?show?mild?degenerative?disease He?did?not?improve?with?physical?therapy?or?conservative?care Referred?to?Ortho Orders: Orders Erythrocyte Sedimentation Rate Today M25.50 - Pain in unspecified joint Basic Metabolic Panel Today M25.50 - Pain in unspecified joint, Z00.00 - Encounter for general adult medical examination without abnormal findings CRP High Sensitivity Today M25.50 - Pain in unspecified joint, R70.0 - Elevated erythrocyte sedimentation rate Referrals Orthopedics Referral M25.561 - Pain in right knee, M25.562 - Pain in left knee Medications: New buspirone 5 mg PO BID 30 days 60 tabs 2RF
[2024-10-06 13:50] VITALS: BP 110/60; PULSE 75; RESP 16; TEMP 36.6; O2SAT 95; BMI 29.6
== END 2024-10-06 14:05 | disposition home or self-care (01) ==
PROVIDERS: PCP Family Medicine; Visit Provider Family Medicine
DX: F41.9 Anxiety disorder, unspecified (principal); M25.50 Pain in unspecified joint; M25.561 Pain in right knee; M25.562 Pain in left knee

== ENCOUNTER → 2024-10-06 13:13 | Outpatient (BNVA) | payer OTHER, SELFPAY | PROVIDERS: PCP Family Medicine; Visit Provider Family Medicine | DX: F41.9 Anxiety disorder, unspecified (principal); M25.561 Pain in right knee; M25.562 Pain in left knee | CPT/HCPCS: 96127 ==

== ENCOUNTER 2024-12-15 09:09 | Outpatient (AMB) | payer OTHER, SELFPAY ==
--- NOTE | 2024-12-15 09:10 | A.OFFVIS_ITS ---
Vital Signs 12/15/24 09:13 Height 6 ft Weight 218 lb BMI 29.6 Intake Visit Reasons: OV- f/u B/L knee OA Intake Note: Sher is a 54 year old male who presents today for a follow up of his bilateral patellofemoral OA.. He was last seen in February of 2024 where no interventions were warranted. Patient report that he is having continued and worsening pain of bilateral knees. The right is a bit worse than the left. He has done a course of physical therapy - about 7 seven sessions but he was not making any progress so he was discharged. Allergies No Known Allergies [No Known Allergies*] Allergy (Verified 10/06/24 13:46) HPI HPI OV- f/u B/L knee OA: Details: Sher returns with continued bilateral knee pain. Stairs and standing for extended periods are bothersome. He tried PT but this was not particularly helpful. he does not take NSAIDs and is a smoker. 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 Resp Other: No audible wheezing Effort & Inspection: normal respiratory effort Back/Spine/Pelvis Cervical Spine: normal cervical lordosis Skin General skin exam: no rashes or lesions noted Neuro General: no focal motor deficits Extrem Other: full rom no effusion mild anterior and retropatellar ttp Psych Appearance: grossly normal and well kempt Mental Status: mental status grossly normal Speech and movement: Normal speech and movement present Affect: normal affect Attitude: cooperative Office Procedures Joint Inj/Aspir; Non-Pain Clin Joint Injection/Drain Details: Injected 1 mL of Decadron and 3 mL 1% lidocaine and 3 mL of 0.25% Marcaine. Site was prepped using aseptic technique. Patient tolerated the procedure well. Shoulders, Hips, Knees, Knee Large Joint Injection : Bilateral Knee Coding Procedure code (CPT) selection complete Assessment & Plan Assessment & Plan (1) Osteoarthritis of patellofemoral joints of both knees: Code(s): M17.0 - Bilateral primary osteoarthritis of knee Category: Medical Plan: This is a 54 yo M with bilateral mild-moderate PF OA. I injected bilateral knees today and he can follow up in ~ 3 months,. I also wrote an rx for Meloxicam. Coding Level of Care Code Est Pt Level 4 (62955) Diagnoses Osteoarthritis of patellofemoral joints of both knees M17.0 CPT Codes Shoulders, Hips, Knees, - Knee Large Joint Injection : Bilateral Knee ([id number])
[2024-12-15 09:13] VITALS: BMI 29.6
== END 2024-12-15 10:19 | disposition home or self-care (01) ==
PROVIDERS: PCP Family Medicine; Visit Provider Orthopaedic Surgery
DX: M17.0 Bilateral primary osteoarthritis of knee (principal)
CPT/HCPCS: 20610; 99214

== ENCOUNTER → 2024-12-15 09:09 | Outpatient (BNVA) | payer OTHER, SELFPAY | PROVIDERS: PCP Family Medicine; Visit Provider Orthopaedic Surgery | DX: M17.0 Bilateral primary osteoarthritis of knee (principal) | CPT/HCPCS: 20610; J0665; J1100; J2003 ==

== ENCOUNTER → 2025-02-10 19:21 | Outpatient (BNV) | payer OTHER, SELFPAY | PROVIDERS: PCP Family Medicine; Visit Provider Radiology Diagnostic Radiology | DX: M17.0 Bilateral primary osteoarthritis of knee (principal) | CPT/HCPCS: 73721 ==

== ENCOUNTER 2025-02-10 19:23 | Outpatient (REF) | payer OTHER, SELFPAY | END 2025-02-10 19:24 | disposition home or self-care (01) | LOC: HO.MRI 19:23 | PROVIDERS: PCP Family Medicine; Visit Provider Orthopaedic Surgery | DX: M17.0 Bilateral primary osteoarthritis of knee (principal) | CPT/HCPCS: 73721 ==

== ENCOUNTER 2025-02-27 07:47 | Emergency (ER) | payer OTHER, SELFPAY ==
--- NOTE | ~2025-02-27 | CT_ITS ---
EXAMINATION: CT HEAD WITHOUT CONTRAST CLINICAL INFORMATION: neck pain and headache s/p fall COMPARISON: None available. TECHNIQUE: Contiguous axial imaging was performed from the skull base to vertex without intravenous administration of contrast. This CT examination was performed using dose optimization techniques as appropriate, variously including the following: *Automated exposure control *Adjustment of mA and/or kV according to patient size (this includes techniques or standardized protocols for targeted exams where dose is matched to indication/reason for exam; i.e. extremities or head) *Use of iterative reconstruction technique DLP: 781.37 mGy-cm FINDINGS: The bony calvarium is intact. No acute intracranial hemorrhage, mass effect, midline shift, hydrocephalus or herniation. Musa-white matter differentiation is normal. Asymmetric mild prominent right lateral ventricle, congenital. Small cavum septum pellucidum. Posterior cranial fossa contents demonstrated normal position of the cerebellar tonsils. No gross acute hemorrhage. Sellar/suprasellar region demonstrated no acute hemorrhage or mass effect. Calcified plaques in the cavernous supraclinoid segments of the ICA. No air-fluid levels in the paranasal sinuses. Mild deformity of the nasal bones. Tympanic cavities and mastoid cells are aerated. CT/CT head/brain wo IV con IMPRESSION: No acute fracture, bony calvarium. No acute intracranial hemorrhage. Mild traumatic deformity nasal bones probably old. Electronically signed by: Brett Mcneal MD 02/27/2025 09:37 AM EDT
--- NOTE | ~2025-02-27 | CT_ITS ---
EXAMINATION: CT CERVICAL SPINE WITHOUT CONTRAST CLINICAL INFORMATION: Injury. Neck pain. COMPARISON: None available. TECHNIQUE: Contiguous axial images through the cervical spine using 3 mm collimation with bone and soft tissue algorithm. Sagittal and coronal reformatted images on bone algorithm. DLP: 538.[address] examination was performed using dose optimization techniques as appropriate, variously including the following: *Automated exposure control *Adjustment of mA and/or kV according to patient size (this includes techniques or standardized protocols for targeted exams where dose is matched to indication/reason for exam; i.e. extremities or head) *Use of iterative reconstruction technique FINDINGS: Craniocervical junction is intact with normal alignment. Marginal osteophyte formation and endplate sclerosis subchondral cyst formation and decreased intervertebral disc height C3 C7 more pronounced at C5-C6. Reverse curvature apex at C4-5. There is a cortical disruption with a diagonal orientation involving the anterior superior endplate of C7. There is a 1 mm anterolisthesis C3-4. C1 is intact. C2 is intact. C3 is intact. C4 is intact. C5 is intact. C6 is intact. No gross prevertebral compartment hematoma. Punctate calcifications in the palatine tonsils. There is a subtle pulmonary mosaic pattern. Paraseptal emphysematous changes in the upper lung lobes. CT/CT cervical spine wo IV con IMPRESSION: Concerning acute nondisplaced fracture anterior superior endplate of C7. Fleischner guidelines were followed. Electronically signed by: Brett Mcneal MD 02/27/2025 09:46 AM EDT
[2025-02-27 08:12] VITALS: BP 146/104; PULSE 72; RESP 18; TEMP 36.8; O2SAT 98; BMI 30.8
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
[2025-02-27] MEDS: Butalb/Acetamin/Caff 50/325/40 TABLET 1 TAB PO (09:10)
[2025-02-27 10:11] VITALS: BP 148/100; PULSE 59; RESP 14; TEMP 36.6; O2SAT 100
--- NOTE | 2025-02-27 10:14 | PC.NURSE ---
Maria Del Carmen cervical collar applied per Yeni WEBBER.
[2025-02-27 12:09] VITALS: BP 143/90; PULSE 60; RESP 14; TEMP 36.2; O2SAT 100
[2025-02-27 12:14] VITALS: BP 143/90; PULSE 60; RESP 14; TEMP 36.2; O2SAT 100
== END 2025-02-27 12:14 | disposition home or self-care (01) ==
PROVIDERS: Emergency Provider Emergency Medicine; PCP Family Medicine
DX: S12.601A Unspecified nondisplaced fracture of seventh cervical vertebra, initial encounter for closed fracture (principal); V43.52XA Car driver injured in collision with other type car in traffic accident, initial encounter; R51.9 Headache, unspecified; Y93.89 Activity, other specified; Y92.414 Local residential or business street as the place of occurrence of the external cause; Y99.9 Unspecified external cause status
CPT/HCPCS: 70450; 72125; 99284

== ENCOUNTER → 2025-02-27 08:30 | Outpatient (BNV) | payer OTHER, SELFPAY | PROVIDERS: Emergency Provider Emergency Medicine; PCP Family Medicine; Visit Provider Radiology Diagnostic Radiology | DX: M54.2 Cervicalgia (principal); R51.9 Headache, unspecified | CPT/HCPCS: 70450; 72125 ==

== ENCOUNTER 2025-03-02 11:46 | Outpatient (AMB) | payer OTHER, SELFPAY ==
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
[2025-03-02 12:30] VITALS: BP 118/88; PULSE 75; RESP 14; TEMP 36.6; O2SAT 95; BMI 30.5
== END 2025-03-02 13:23 | disposition home or self-care (01) ==
LOC: HO.HMCFM 11:46
PROVIDERS: PCP Family Medicine; Visit Provider Family Medicine
DX: S12.601A Unspecified nondisplaced fracture of seventh cervical vertebra, initial encounter for closed fracture (principal); S06.0XAA Concussion with loss of consciousness status unknown, initial encounter; R51.9 Headache, unspecified; Z04.3 Encounter for examination and observation following other accident; V87.7XXA Person injured in collision between other specified motor vehicles (traffic), initial encounter

== ENCOUNTER → 2025-03-02 11:46 | Outpatient (BNVA) | payer OTHER, SELFPAY | PROVIDERS: PCP Family Medicine; Visit Provider Family Medicine | DX: S12.601A Unspecified nondisplaced fracture of seventh cervical vertebra, initial encounter for closed fracture (principal); S06.0XAA Concussion with loss of consciousness status unknown, initial encounter; R51.9 Headache, unspecified; V89.2XXA Person injured in unspecified motor-vehicle accident, traffic, initial encounter; Y93.9 Activity, unspecified; Y92.9 Unspecified place or not applicable; Y99.9 Unspecified external cause status | CPT/HCPCS: 96127 ==

== ENCOUNTER 2025-03-09 11:43 | Outpatient (AMB) | payer OTHER, SELFPAY ==
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
== END 2025-03-09 12:14 | disposition home or self-care (01) ==
LOC: HO.HOS 11:44
PROVIDERS: PCP Family Medicine; Visit Provider Orthopaedic Surgery
DX: M23.309 Other meniscus derangements, unspecified meniscus, unspecified knee (principal)
CPT/HCPCS: 99214

== ENCOUNTER → 2025-03-16 10:30 | Outpatient (BNVA) | payer OTHER, SELFPAY | PROVIDERS: PCP Family Medicine; Visit Provider Orthopaedic Surgery ==

== ENCOUNTER 2025-04-11 15:36 | Outpatient (AMB) | payer OTHER, SELFPAY ==
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
[2025-04-11 15:59] VITALS: BP 120/80; PULSE 84; RESP 14; TEMP 36.7; O2SAT 98; BMI 30.6
== END 2025-04-11 16:36 | disposition home or self-care (01) ==
LOC: HO.HMCFM 15:37
PROVIDERS: PCP Family Medicine; Visit Provider Family Medicine
DX: S12.601A Unspecified nondisplaced fracture of seventh cervical vertebra, initial encounter for closed fracture (principal); R51.9 Headache, unspecified; F41.9 Anxiety disorder, unspecified; M25.561 Pain in right knee; M25.562 Pain in left knee

== ENCOUNTER → 2025-04-11 15:36 | Outpatient (BNVA) | payer OTHER, SELFPAY | PROVIDERS: PCP Family Medicine; Visit Provider Family Medicine | DX: M25.561 Pain in right knee (principal); M25.562 Pain in left knee; F41.9 Anxiety disorder, unspecified; R51.9 Headache, unspecified; S12.601A Unspecified nondisplaced fracture of seventh cervical vertebra, initial encounter for closed fracture; X58.XXXA Exposure to other specified factors, initial encounter; Y93.9 Activity, unspecified; Y92.9 Unspecified place or not applicable; Y99.9 Unspecified external cause status | CPT/HCPCS: 96127 ==

== ENCOUNTER 2025-05-07 08:18 | Outpatient (AMB) | payer OTHER, SELFPAY ==
--- NOTE | 2025-05-07 08:23 | MHC.OFFVIS ---
Intake Visit Reasons: Bilateral Knee Euflexxa #1 Intake Note: Sher is a 54 year old male who presents today for Bilateral Knee Euflexxa #1 Allergies No Known Allergies (No Known Allergies*) Allergy (Verified 05/07/25 08:27) HPI HPI Bilateral Knee Euflexxa #1: Details: Sher is here today for Euflexxa injections. 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 Site was prepped using aseptic technique. Patient tolerated the procedure well. Shoulders, Hips, Knees, Knee Large Joint Injection : Bilateral Knee Coding Procedure code (CPT) selection complete Assessment & Plan Assessment & Plan (1) Osteoarthritis of patellofemoral joints of both knees: Code(s): M17.0 - Bilateral primary osteoarthritis of knee Category: Medical Plan: Injected bilateral knees today. Follow up 1 week for 2nd injection. Coding Level of Care Code Est Pt Level 2 (22729) Diagnoses Osteoarthritis of patellofemoral joints of both knees M17.0 CPT Codes Shoulders, Hips, Knees, - Knee Large Joint Injection : Bilateral Knee ([id number])
--- OUTSIDE RECORDS SUMMARY | 2025-05-07 08:25 | XMS_ITS | Encounter Summary ---
Author Organization Formerly [facility] Address [address] [place] [address] [place] [address] Phone Care Team Providers Care Corporate Vp Advertising & Online Name Role Phone Ricky Borrego Primary Care Provider [phone] Hany Robison MD Unavailable [phone] Hany Robison MD Unavailable [phone] Encounter Details Date Type Department Care Team (Late st Contact Info) Description 11/09/2019 Procedure Pass [facility] Endoscopy Admitting Dept Virtual Department [address] [place] [address] Social History Tobacco Use Types Packs/Day Years Used Date Smoking Tobacco: Former Cigarettes Q uit: 09/02/2019 Smokeless Tobacco: Never Alcohol Use Standard Drinks/Week Comments Not Currently 0 (1 standard drink = 0.6 oz pur e alcohol) Sex and Gender Information Value Date Recorded Sex Assigned at Not on file Legal Sex Male 11:57 AM EST Gender Identity Not on file Sexual Orientation Not on file documented as of this encounter Plan of Treatment Not on file documented as of this encounter Visit Diagnoses Not on filedocumented in this encounter Care Teams Corporate Vp Advertising & Online Relationship Specialty Start Date End Date Rciky Borrego PA [address] [place] [address] [place] [phone] [email or web address] PCP - General Unknown Provider Specialty 10/27/19 Hany Robison MD [address] [place] [address] [email or web address] Insurance Assigned Provider 11/17/19 04/22/20 Hany Robison MD [address] [place] [phone] [email or web address] Insurance Assigned Provider 03/23/21 12/21/21 documented as of this encounter Additional Source Comments The information contained in this document represents components of the legal health record. It is not the complete legal health record.[facility]
== END 2025-05-07 08:50 | disposition home or self-care (01) ==
LOC: HO.HOS 08:19
PROVIDERS: PCP Family Medicine; Visit Provider Orthopaedic Surgery
DX: M17.0 Bilateral primary osteoarthritis of knee (principal)
CPT/HCPCS: 20610

== ENCOUNTER → 2025-05-07 08:18 | Outpatient (BNVA) | payer OTHER, SELFPAY | PROVIDERS: PCP Family Medicine; Visit Provider Orthopaedic Surgery | DX: M17.0 Bilateral primary osteoarthritis of knee (principal) | CPT/HCPCS: 20610; J7323 ==

== ENCOUNTER 2025-05-14 08:23 | Outpatient (AMB) | payer OTHER, SELFPAY ==
[2025-05-14 08:29] VITALS: BMI 30.6
--- NOTE | 2025-05-14 08:29 | MHC.OFFVIS ---
Vital Signs 05/14/25 08:29 Height 5 ft 10 in Weight 213 lb BMI 30.6 Intake Visit Reasons: Bilateral Knee Euflexxa #2 Intake Note: Sher is a 54 year old male who presents today for Bilateral Knee Euflexxa injection #2. Patient reports soreness from last injection, with no noticeable relief. Allergies No Known Allergies (No Known Allergies*) Allergy (Verified 05/14/25 08:33) HPI HPI Bilateral Knee Euflexxa #2: Details: Here for 2 of 3 Euflexxa. No new complaints. 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 Site was prepped using aseptic technique. Patient tolerated the procedure well. Shoulders, Hips, Knees, Knee Large Joint Injection 23154: Bilateral Knee Coding Procedure code (CPT) selection complete Assessment & Plan Assessment & Plan (1) Osteoarthritis of patellofemoral joints of both knees: Code(s): M17.0 - Bilateral primary osteoarthritis of knee Category: Medical Plan: 2 of 3 Euflexxa f/u one week. Coding Level of Care Code Est Pt Level 2 (11886) Diagnoses Osteoarthritis of patellofemoral joints of both knees M17.0 CPT Codes Shoulders, Hips, Knees, - Knee Large Joint Injection 54836: Bilateral Knee ([id number])
--- OUTSIDE RECORDS SUMMARY | 2025-05-14 08:34 | XMS_ITS | Encounter Summary ---
Author Organization [facility] Address [address] [place] [address] [place] [address] Phone Care Team Providers Care Environmental Professional Name Role Phone Ricky Borrego Primary Care Provider [phone] Hany Robison MD Unavailable [phone] Hany Robison MD Unavailable [phone] Encounter Details Date Type Department Care Team (Late st Contact Info) Description 11/09/2019 Procedure Pass [facility] Endoscopy Admitting Dept Virtual Department [address] [place] [id number] Social History Tobacco Use Types Packs/Day Years [...] on filedocumented in this encounter Care Teams Environmental Professional Relationship Specialty Start Date End Date Ricky Borrego PA [address] [place] [address] [place] [address] [email or web address] PCP - General Unknown Provider Specialty 10/27/19 Hany Robison MD [address] [place] [address] [email or web address] Insurance Assigned Provider 11/17/19 04/22/20 Hany Robison MD [address] [place] [phone] [email or web address] Insurance Assigned Provider 03/23/21 12/21/21 documented as of this encounter Additional Source Comments The information contained in this document represents components of the legal health record. It is not the complete legal health record.[facility]
== END 2025-05-14 08:54 | disposition home or self-care (01) ==
LOC: HO.HOS 08:24
PROVIDERS: PCP Family Medicine; Visit Provider Orthopaedic Surgery
DX: M17.0 Bilateral primary osteoarthritis of knee (principal)
CPT/HCPCS: 20610

== ENCOUNTER → 2025-05-14 08:23 | Outpatient (BNVA) | payer OTHER, SELFPAY | PROVIDERS: PCP Family Medicine; Visit Provider Orthopaedic Surgery | DX: M17.0 Bilateral primary osteoarthritis of knee (principal) | CPT/HCPCS: 20610; J7323 ==

== ENCOUNTER 2025-05-21 09:10 | Outpatient (AMB) | payer OTHER, SELFPAY ==
--- NOTE | 2025-05-21 09:17 | MHC.OFFVIS ---
Intake Visit Reasons: Bilateral Knee Euflexxa #3 Intake Note: Sher is a 54 year old male who presents today for his Final bilateral knee Euflexxa injections #3 Patient reports that he has started to feel some relief from the injections, he understands that it may take a few weeks from the last injection to feel full benefits. Allergies No Known Allergies (No Known Allergies*) Allergy (Verified 05/14/25 08:33) HPI HPI Bilateral Knee Euflexxa #3: Details: Sher is a 54 year old male who presents today for his Final bilateral knee Euflexxa injections #3 Patient reports that he has started to feel some relief from the injections, he understands that it may take a few weeks from the last injection to feel full benefits. 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 Site was prepped using aseptic technique. Patient tolerated the procedure well. Shoulders, Hips, Knees, Knee Large Joint Injection : Bilateral Knee Coding Procedure code (CPT) selection complete Assessment & Plan Assessment & Plan (1) Osteoarthritis of patellofemoral joints of both knees: Code(s): M17.0 - Bilateral primary osteoarthritis of knee Category: Medical Plan: f/u 3 mo Coding Level of Care Code Est Pt Level 2 (65021) Diagnoses Osteoarthritis of patellofemoral joints of both knees M17.0 CPT Codes Shoulders, Hips, Knees, - Knee Large Joint Injection : Bilateral Knee ([id number])
--- OUTSIDE RECORDS SUMMARY | 2025-05-21 09:34 | XMS_ITS | Encounter Summary ---
Author Organization [facility] Address [address] [place] [address] [place] [address] Phone Care Team Providers Care Planogrammer Name Role Phone Ricky Borrego Primary Care Provider [phone] Hany Robison MD Unavailable [phone] Hany Robison MD Unavailable [phone] Encounter Details Date Type Department Care Team (Late st Contact Info) Description 11/09/2019 Procedure Pass [facility] Endoscopy Admitting Dept Virtual Department [address] [place] [phone] Social History Tobacco Use Types Packs/Day Years [...] on filedocumented in this encounter Care Teams Planogrammer Relationship Specialty Start Date End Date Ricky Borrego PA [address] [place] [address] [place] [phone] [email or web address] PCP - General Unknown Provider Specialty 10/27/19 Hany Robison MD [address] [place] [address] [email or web address] Insurance Assigned Provider 11/17/19 04/22/20 Hany Robison MD [address] [place] [address] [email or web address] Insurance Assigned Provider 03/23/21 12/21/21 documented as of this encounter Additional Source Comments The information contained in this document represents components of the legal health record. It is not the complete legal health record.[facility]
== END 2025-05-21 10:22 | disposition home or self-care (01) ==
LOC: HO.HOS 09:11
PROVIDERS: PCP Family Medicine; Visit Provider Orthopaedic Surgery
DX: M17.0 Bilateral primary osteoarthritis of knee (principal)
CPT/HCPCS: 20610

== ENCOUNTER → 2025-05-21 09:10 | Outpatient (BNVA) | payer OTHER, SELFPAY | PROVIDERS: PCP Family Medicine; Visit Provider Orthopaedic Surgery | DX: M17.0 Bilateral primary osteoarthritis of knee (principal) | CPT/HCPCS: 20610; J7323 ==

== ENCOUNTER 2025-06-02 09:54 | Outpatient (REF) | payer OTHER, SELFPAY ==
--- NOTE | ~2025-06-02 | CT_ITS ---
CLINICAL HISTORY: S12.601D - Unspecified nondisplaced fracture of seventh cervical vertebr... CT cervical spine without contrast Comparison: CT/[place]/SR - CT CERVICAL SPINE WO IV CON - 02/27/25 09:15 EDT Findings: Moderate multilevel marginal osteophyte formation and disc space narrowing is present. Multilevel facet arthropathy is also noted. Vertebral body heights are well-maintained. No acute fracture is identified. There is grade 1 retrolisthesis of C5, similar to prior exam. There is no canal stenosis. Mild neural foraminal stenosis is seen at C5/6 bilaterally and at C6/7 on the left. The thyroid gland appears normal. Mild paraseptal emphysema is seen in the lung apices. IMPRESSION: 1. No acute osseous abnormality is identified. 2. Moderate degenerative changes in the cervical spine. This document has been electronically signed by: Brady Lebron on 06/04/2025 09:03:49
== END 2025-06-02 09:55 | disposition home or self-care (01) ==
LOC: HO.CT 09:54
PROVIDERS: PCP Family Medicine; Visit Provider Family Medicine
DX: S12.601D Unspecified nondisplaced fracture of seventh cervical vertebra, subsequent encounter for fracture with routine healing (principal)
CPT/HCPCS: 72125

== ENCOUNTER → 2025-06-02 09:56 | Outpatient (BNV) | payer OTHER, SELFPAY | PROVIDERS: PCP Family Medicine; Visit Provider Radiology Vascular & Interventional Radiology | DX: S12.601D Unspecified nondisplaced fracture of seventh cervical vertebra, subsequent encounter for fracture with routine healing (principal); M50.30 Other cervical disc degeneration, unspecified cervical region | CPT/HCPCS: 72125 ==